=== PATIENT | female | born 1960 | race Caucasian/White ===

== ENCOUNTER 2016-11-22 05:18 | Day surgery (SDC) | payer MEDICAID ==
[2016-11-19 11:59] LABS: HEMATOCRIT 43.8 % (36.0-48.0); MCH 28.3 pg (26.0-34.0); MCV 88.7 fL (80.0-100.0); MEAN PLATELET VOLUME 11.1 fL (7.4-10.4); RBC 4.94 10x6/uL (4.00-5.40); RDW 14.6 % (11.5-14.5); WBC 11.3 10x3/uL (4.8-10.8)
[2016-11-19 12:20] LABS: CALC OSMOLALITY 289 mosm/kg (275-300); CALCIUM 9.4 mg/dL (8.5-10.1); CARBON DIOXIDE 34.3 mmol/L (21.0-32.0); CHLORIDE - SERUM 106 mmol/L (98-107); CREATININE - SERUM 0.8 mg/dL (0.6-1.3); GLUCOSE 79 mg/dL (74-106); SODIUM 145 mmol/L (136-145); UREA NITROGEN 19 mg/dL (7-18); eGFR NON AFRICAN AMERICAN 78 mL/min (90-120)
[~2016-11-22] VITALS: Ht 160 cm; Wt 124.7 kg
[~2016-11-22 05:18] MED LIST: COZAAR100 MG PO; FUROSEMIDE20 MG PO; LEVOTHYROXINE150 MCG PO; MOBIC7.5 MG PO; PROTONIX40 MG PO
[2016-11-22 08:46] VITALS: Ht 160 cm; Wt 124.7 kg
[2016-11-22] MEDS ORDERED: HYDROCODONE-APA1 TAB PO (10:44)
--- NOTE | 2016-11-22 15:29 | NUR ---
1215--IV DC'D, PT DRESSING AT THIS TIME. PAIGE GUNTER 1230--DISCHARGE INSTRUCTIONS GIVEN, PT VERBALIZES UNDERSTANDING. PT OFF UNIT VIA WC. PAIGE GUNTER
--- NOTE | 2016-12-06 18:23 | OP ---
PATIENT NAME: MUKUL MCKEON MEDICAL RECORD: [id number] :56 LOCATION:[facility] ADMISSION DATE: SURGEON: JAKE OSORIO MD DATE OF OPERATION: 11/22/2016 PREOPERATIVE DIAGNOSIS: Trigger thumb of the left thumb. POSTOPERATIVE DIAGNOSIS: Trigger thumb of the left thumb. PROCEDURE: A1 michelle release trigger of the left thumb. SURGEON: Jake Osorio MD ANESTHESIA: General. INTRAOPERATIVE COMPLICATIONS: None. SUMMARY OF PATHOLOGIC FINDINGS: The patient had a very hardened and thickened A1 michelle, which resulted in immediate release of the tendon when it was incised. OPERATIVE SUMMARY IN DETAIL: After obtaining the appropriate preoperative orthopedic surgery consent as well as anesthetic consultation, evaluation and clearance, the patient was brought to operating room and placed on the operating table in supine position. After adequate general laryngeal mask was administered, Esmarch was used as a tourniquet about the patient's proximal left upper extremity. An incision was made over the base of the thumb directly over the A1 michelle, taken down to the A1 michelle, which was identified in its entirety and incised. It was completely incised resulting in excellent excursion of the complex. The wound was irrigated and closed with 4-0 Prolene. The area was locally infiltrated with 0.25% Marcaine plain. Sterile dressings were applied. Esmarch bandage was removed. The patient was awakened, taken to recovery in stable condition. All final needle and sponge counts were correct. TRANSINT:[id number] Voice Confirmation ID: [id number] DOCUMENT ID: [id number] JAKE OSORIO MD at 1823 CC: [id number] DICTATION DATE: 11/22/16 1046 ROVER TENDER: 11/22/16 1102 [facility] 11/22/16 [place] [id number]
== END 2016-11-22 12:30 | disposition home or self-care (01) ==
LOC: D.OPS 05:18 → D.PAN 13:10 → D.OPS 13:15 → D.PAN 13:15
PROVIDERS: Anesthesiology
DX: M65.312 Trigger thumb, left thumb (principal); I10 Essential (primary) hypertension; E03.9 Hypothyroidism, unspecified; K21.9 Gastro-esophageal reflux disease without esophagitis; K44.9 Diaphragmatic hernia without obstruction or gangrene; E66.01 Morbid (severe) obesity due to excess calories; Z68.42 Body mass index [BMI] 45.0-49.9, adult